=== PATIENT | female | born 1950 | race Caucasian/White ===

== ENCOUNTER 2018-11-19 20:26 | Emergency (ER) | payer MEDICAID, MEDICARE ==
[~2018-11-19] VITALS: Ht 152.4 cm; Wt 59.1 kg
[2018-11-19 22:10] VITALS: BP 122/74
== END 2018-11-19 22:15 | disposition home or self-care (01) ==
LOC: EMS 20:28
DX: J06.9 Acute upper respiratory infection, unspecified (principal); J45.909 Unspecified asthma, uncomplicated; F17.210 Nicotine dependence, cigarettes, uncomplicated; Z90.710 Acquired absence of both cervix and uterus; Z88.5 Allergy status to narcotic agent

== ENCOUNTER 2019-05-11 21:26 | Emergency (ER) | payer MEDICARE, MEDICAID ==
[~2019-05-11] VITALS: Ht 154.9 cm; Wt 60.5 kg
[2019-05-11 22:00] VITALS: BP 104/51
== END 2019-05-11 22:36 | disposition home or self-care (01) ==
LOC: EMS 21:27
DX: J30.9 Allergic rhinitis, unspecified (principal); J06.9 Acute upper respiratory infection, unspecified; J45.909 Unspecified asthma, uncomplicated; F17.210 Nicotine dependence, cigarettes, uncomplicated; Z90.710 Acquired absence of both cervix and uterus; Z88.5 Allergy status to narcotic agent

== ENCOUNTER 2023-05-19 10:38 | Emergency (ER) | payer MEDICARE, MEDICAID ==
[~2023-05-19] VITALS: Ht 152.4 cm; Wt 59.1 kg
[2023-05-19 10:41] VITALS: TEMP 98.3
[2023-05-19 10:54] LABS: COVID AG,FIA SOURCE NASAL SWAB
[2023-05-19] MEDS ORDERED: ONDANSETRON HCL 4 MG/2 ML VIAL IVP ONE (11:00)
[2023-05-19] MEDS ORDERED: DIPHENOXYLATE/ATROP 2.5-0.025 MG/5 ML ORAL.SYG LIQUID PO ONE (11:00)
[2023-05-19] MEDS ORDERED: CIPROFLOXACIN HCL 250 MG TABLET PO ONE (11:00)
[2023-05-19] MEDS ORDERED: SODIUM CHLORIDE 0.9% 500 ML IV ONE (11:00)
[2023-05-19 11:45] LABS: BASOPHILS % (AUTO) 0.6 % (0.0-2.0); EOSINOPHILS % (AUTO) 4.1 % (1.0-6.0); HEMATOCRIT 38.8 % (36-46); HEMOGLOBIN 12.7 g/dL (12.0-16.0); LYMPHOCYTES # (AUTO) 2.8 K/uL (1.0-4.8); LYMPHOCYTES % (AUTO) 18.5 % (22.0-44.0); MEAN CORPUSCULAR HEMOGLOBIN 26.5 pg (26.0-34.0); MEAN CORPUSCULAR HGB CONC 32.8 G/dL (31.0-37.0); MEAN CORPUSCULAR VOLUME 81 fL (80-100); MONOCYTES # (AUTO) 0.7 K/uL (0.1-1.0); MONOCYTES % (AUTO) 4.8 % (2.0-9.0); PLATELET COUNT (AUTO) 466 K/uL (150-450); RED BLOOD CELL COUNT(AUTO) 4.81 MIL/uL (4.00-5.20); RED CELL DISTRIBUTION WIDTH 14.2 % (11.5-14.5)
[2023-05-19 11:49] LABS: ANION GAP 11 mmol/L (8-16); CALCIUM, TOTAL 8.5 mg/dL (8.8-10.5); CARBON DIOXIDE 25 mmol/L (22-29); CHLORIDE 103 mmol/L (98-107); CREATININE 0.55 mg/dL (0.60-1.30); GLOMERULAR FILTR. RATE CALC > 60 mL/min (>60); GLUCOSE,RANDOM 123 mg/dL (70-110); POTASSIUM 3.9 mmol/L (3.5-5.1); SODIUM SERUM 139 mmol/L (136-145)
[2023-05-19 11:49] LABS: INFLUENZA TYPE A NEGATIVE FOR TYPE A (NEGATIVE); INFLUENZA TYPE B NEGATIVE FOR TYPE B (NEGATIVE)
[2023-05-19 11:55] LABS: ALANINE AMINOTRANSFERASE 22 U/L (12-78); ALBUMIN 3.2 g/dL (3.4-5.0); ALKALINE PHOSPHATASE 117 U/L (46-116); ASPARTATE AMINOTRANSFERASE 18 U/L (15-37); BILIRUBIN,TOTAL 0.4 mg/dL (0.1-1.0); TOTAL PROTEIN, SERUM 6.9 g/dL (6.4-8.2)
[2023-05-19 13:03] VITALS: BP 152/66; PULSE 73; RESP 16
== END 2023-05-19 13:15 | disposition home or self-care (01) ==
LOC: EMS 10:48
DX: R11.2 Nausea with vomiting, unspecified (principal); R19.7 Diarrhea, unspecified; J45.909 Unspecified asthma, uncomplicated; F17.210 Nicotine dependence, cigarettes, uncomplicated; Z90.710 Acquired absence of both cervix and uterus; Z98.890 Other specified postprocedural states; Z88.5 Allergy status to narcotic agent; Z20.822 Contact with and (suspected) exposure to COVID-19
CPT/HCPCS: 99283; 96374; 87426; 80053; 85025; 87804; 36415; J2405; J7040

== ENCOUNTER 2023-09-24 13:50 | Emergency (ER) | payer MEDICAID, MEDICARE ==
[~2023-09-24] VITALS: Ht 152.4 cm; Wt 59.1 kg
[2023-09-24 13:53] VITALS: BP 114/56; PULSE 92; RESP 16; TEMP 98
[2023-09-24 13:59] LABS: COVID AG,FIA SOURCE NASAL SWAB
[2023-09-24 14:24] LABS: INFLUENZA TYPE A NEGATIVE FOR TYPE A (NEGATIVE); INFLUENZA TYPE B NEGATIVE FOR TYPE B (NEGATIVE)
[2023-09-24 14:25] LABS: SARS-COV2 (COVID) ANTIGEN,FIA Negative (Negative)
[2023-09-24] MEDS ORDERED: PRED-554 PO (15:55)
[2023-09-24] MEDS ORDERED: AZIT250T9 PO (15:55)
[2023-09-24] MEDS ORDERED: ALBU18HF12 IH (15:55)
[2023-09-24] MEDS ORDERED: BENZ-227 PO (16:07)
== END 2023-09-24 16:19 | disposition home or self-care (01) ==
LOC: EMS 14:04
DX: H66.92 Otitis media, unspecified, left ear (principal); J44.9 Chronic obstructive pulmonary disease, unspecified; F17.210 Nicotine dependence, cigarettes, uncomplicated; Z90.710 Acquired absence of both cervix and uterus; Z98.890 Other specified postprocedural states; Z88.5 Allergy status to narcotic agent; Z20.822 Contact with and (suspected) exposure to COVID-19
CPT/HCPCS: 99284; 71045; 87426; 87804; C9803